=== PATIENT | male | born 1940 | race Caucasian/White ===

== ENCOUNTER → 2017-10-22 | Outpatient (CLI) | payer MEDICARE, BC ==
--- NOTE | 2017-10-25 06:19 | RADIOLOGY REPORT PS360 ---
EXAM: CT LUNG LOW DOSE WO CONTRAST COMPARISON: 10/18/2016 HISTORY: 76-year-old male with greater than 30 pack-year smoking history asymptomatic, follow-up screening exam ORDERING PHYSICIAN: Keven Burciaga MD PATIENT AGE: 76 years TECHNIQUE: The exam was performed on a GE Light Speed [address] scanner using 2.96 mGy CTDI. A low dose helical CT CHEST was performed on a multi-detector scanner The LDCT was performed in a facility that meets the criteria for the screening program. Data regarding this exam was submitted to [employer] which is an approved registry. The order for this exam indicates that it came as a result of a lung cancer screening counseling shard decision-making visit that included all the elements required of such a visit including smoking cessation. The radiologist interpreting this exam meets the [facility] criteria for the LDCT lung cancer screening program. The exam is reported using the Lung-RADS classification scale and reported to the ACR registry. NOTE: This study was performed for the specific purposes of lung cancer screening and is not an alternative to diagnostic chest CT. RADIATION DOSE: CTDI vol(CT dose Index-volume) = 2.96mG DLP (Dose Length Product) = 129.51 mGcm FINDINGS: There is calcified granuloma in the right upper lobe and one in the right lower lobe. No suspicious pulmonary nodules evident. LUNG PARENCHYMA Emphysema: Centrilobular emphysematous change Airways disease: Hyper inflation with attenuation of the peripheral pulmonary vessels and bronchial thickening Fibrosis: Minimal apical fibrotic change OTHER ANATOMIC REGIONS Lymph Nodes: No enlarged lymph nodes evident. Scattered small nodes are present in the mediastinum and yareli Pleura: Unremarkable Cardiac: Coronary artery calcifications are present OTHER FINDINGS: Bilateral gynecomastia IMPRESSION: 1. Lung RADS Category: 2 benign 2. Other findings: Emphysema with obstructive chronic bronchitis Coronary artery calcifications suggesting coronary artery disease Bilateral gynecomastia RECOMMENDATIONS: 12 month LDCT follow-up
== END ==
LOC: RAD 15:10
DX: Z87.891 Personal history of nicotine dependence (principal); Z12.2 Encounter for screening for malignant neoplasm of respiratory organs
CPT/HCPCS: G0297